=== PATIENT | male | born 1985 | race Caucasian/White ===

== ENCOUNTER 2024-08-09 07:13 | Emergency (ER) | payer OTHER, SELFPAY ==
[2024-08-09 07:34] VITALS: BP 199/133; PULSE 93; RESP 16; TEMP 36.8; O2SAT 96; BMI 33.9
--- NOTE | 2024-08-09 07:41 | ED.BACK ---
HPI - Back Pain/Injury General Time Seen by Provider: 07:41 <Phil Soares MD - Last Filed: 08/17/24 06:04> Date Seen: 08/09/24 <Phil Soares MD - Last Filed: 08/17/24 06:04> Chief Complaint: Back Injury/Pain <Phil Soares MD - Last Filed: 08/17/24 06:04> Stated Complaint: Severe low back pain <Phil Soares MD - Last Filed: 08/17/24 06:04> Time Seen by Provider: 08/09/24 07:41 <Phil Soares MD - Last Filed: 08/17/24 06:04> Source: patient, RN notes reviewed and old records reviewed <Phil Soares MD - Last Filed: 08/17/24 06:04> Mode of arrival: ambulatory <Phil Soares MD - Last Filed: 08/17/24 06:04> Limitations: no limitations <Phil Soares MD - Last Filed: 08/17/24 06:04> History of Present Illness HPI Narrative: 38-year-old male who comes today with back pain. Patient noted mild right-sided back pain started about 4 days ago, improved but then last night standing and had increased left-sided back pain. Took Tylenol with minimal improvement. No pain into the legs, no definite injury, no fever, no dysuria or hematuria. <Phil Soares MD - Last Filed: 08/17/24 06:04> Related Data Home Medications: Home Medications ?Medication ?Instructions ?Recorded ?Confirmed No Known Home Medications 08/09/24 08/09/24 Previous Rx's ?Medication ?Instructions ?Recorded cyclobenzaprine 10 mg tablet 10 mg PO TID PRN muscle spasm #15 08/09/24 tabs hydrocodone 5 mg-acetaminophen 325 1 tab PO Q6H PRN pain #4 tabs 08/09/24 mg tablet <Phil Soares MD - Last Filed: 08/17/24 06:04> Allergies/Adverse Reactions: Allergies Allergy/AdvReac Type Severity Reaction Status Date / Time amoxicillin Allergy Intermediate Verified 08/09/24 07:39 <Phil Soares MD - Last Filed: 08/17/24 06:04> PFSH PFSH Social History: Social History Smoking Status: Never smoker How often do you have a drink containing alcohol: 4 or more times a week AUDIT-C Alcohol total score: 4 Non-prescribed substance use: denies use <Phil Soares MD - Last Filed: 08/17/24 06:04> Exam Narrative: Exam Narrative: General: Well-developed and well-nourished, no acute distress Head: Atraumatic and normocephalic Eyes: Pupils are equal reactive, extraocular motions intact, conjunctiva clear ENT: External nose and ears are normal, posterior pharynx without erythema or exudate Neck: No midline cervical tenderness, full spontaneous range of motion the neck, trachea midline, no adenopathy Heart: Regular rate and rhythm no murmurs or thrills Lungs: Clear to auscultation bilaterally without wheezes or crackles Abdomen: Soft, nontender, nondistended with active bowel sounds. Mild left CVA tenderness to percussion Musculoskeletal: No tenderness, deformity, or edema Neurologic: Awake, alert, and oriented x3, no gross focal neurologic deficits, cranial nerves intact as tested Psych: Mood and affect are appropriate Skin: No rashes <Phil Soares MD - Last Filed: 08/17/24 06:04> Const: Vital Signs, click to edit/add: Vital Signs - 24 hr 08/09/24 07:34 Temperature 98.2 F Pulse Rate [Pulse Oximeter] 93 Respiratory Rate 16 Blood Pressure [Ri ght Upper Arm] 199/133 H Pulse Oximetry 96 Oxygen Delivery Me thod Room Air <Phil Soares MD - Last Filed: 08/17/24 06:04> Vital Signs, click to edit/add: Vital Signs - 24 hr 08/09/24 07:34 Temperature 98.2 F Pulse Rate [Pulse Oximeter] 93 Respiratory Rate 16 Blood Pressure [Ri ght Upper Arm] 199/133 H Pulse Oximetry 96 Oxygen Delivery Me thod Room Air <Nadya Mar MD - Last Filed: 08/09/24 08:26> Course Course ED Course: Patient seen and examined, presents today with left-sided back pain. On initial exam, hypertensive but otherwise vital is stable, appears comfortable. No specific areas of tenderness to palpation on low back exam but does have some left CVA tenderness to percussion, generally looks quite comfortable. Suspect musculoskeletal pain but given flank tenderness to percussion, urinalysis is ordered to evaluate for hematuria which would be concerning for kidney stone. If this is negative, patient can be treated symptomatically. Will be given Toradol and Flexeril in the emergency department. <Phil Soares MD - Last Filed: 08/17/24 06:04> Patient seen and examined, presents today with left-sided back pain. On initial exam, hypertensive but otherwise vital is stable, appears comfortable. No specific areas of tenderness to palpation on low back exam but does have some left CVA tenderness to percussion, generally looks quite comfortable. Suspect musculoskeletal pain but given flank tenderness to percussion, urinalysis is ordered to evaluate for hematuria which would be concerning for kidney stone. If this is negative, patient can be treated symptomatically. Will be given Toradol and Flexeril in the emergency department. Patient signed out to me by Dr. Soares to follow up on urinalysis. The urinalysis is negative. Will discharge home with treatment for musculoskeletal back pain and resumption of his lisinopril. Discharge instructions and medications per Dr. Soares. <Nadya Mar MD - Last Filed: 08/09/24 08:26> Vital Signs Vital signs: Initial Vital Signs Temperature 98.2 F 08/09/24 07:34 Temperature Source Temporal Artery Scan 08/09/24 07:34 Pulse Rate 93 08/09/24 07:34 Respiratory Rate 16 08/09/24 07:34 Blood Pressure 199/133 H 08/09/24 07:34 Blood Pressure Mean 155 H 08/09/24 07:34 Blood Pressure Position Sitting 08/09/24 07:34 Pulse Oximetry 96 08/09/24 07:34 Oxygen Delivery Method Room Air 08/09/24 07:34 Vital Signs Temperature 98.2 F 08/09/24 07:34 Pulse Rate 93 08/09/24 07:34 Respiratory Rate 16 08/09/24 07:34 Blood Pressure 199/133 H 08/09/24 07:34 Pulse Oximetry 96 08/09/24 07:34 Oxygen Delivery Method Room Air 08/09/24 07:34 Temperature 98.2 F 08/09/24 07:34 Pulse Rate 93 08/09/24 07:34 Respiratory Rate 16 08/09/24 07:34 Blood Pressure 199/133 H 08/09/24 07:34 Pulse Oximetry 96 08/09/24 07:34 Oxygen Delivery Method Room Air 08/09/24 07:34 <Phil Soares MD - Last Filed: 08/17/24 06:04> Initial Vital Signs Temperature 98.2 F 08/09/24 07:34 Temperature Source Temporal Artery Scan 08/09/24 07:34 Pulse Rate 93 08/09/24 07:34 Respiratory Rate 16 08/09/24 07:34 Blood Pressure 199/133 H 08/09/24 07:34 Blood Pressure Mean 155 H 08/09/24 07:34 Blood Pressure Position Sitting 08/09/24 07:34 Pulse Oximetry 96 08/09/24 07:34 Oxygen Delivery Method Room Air 08/09/24 07:34 Vital Signs Temperature 98.2 F 08/09/24 07:34 Pulse Rate 93 08/09/24 07:34 Respiratory Rate 16 08/09/24 07:34 Blood Pressure 199/133 H 08/09/24 07:34 Pulse Oximetry 96 08/09/24 07:34 Oxygen Delivery Method Room Air 08/09/24 07:34 Temperature 98.2 F 08/09/24 07:34 Pulse Rate 93 08/09/24 07:34 Respiratory Rate 16 08/09/24 07:34 Blood Pressure 199/133 H 08/09/24 07:34 Pulse Oximetry 96 08/09/24 07:34 Oxygen Delivery Method Room Air 08/09/24 07:34 <Nadya Mar MD - Last Filed: 08/09/24 08:26> Medications Administered Medications: Discontinued Medications Generic Name Dose Route Start Last Admin Trade Name Freq PRN Reason Stop Dose Admin Cyclobenzaprine HCl 10 mg 08/09/24 07:47 08/09/24 08:00 Cyclobenzaprine Hcl 10 Mg Tablet PO 08/09/24 07:48 10 mg ONCE ONE Administration Dexamethasone 10 mg 08/09/24 07:47 08/09/24 08:00 Dexamethasone 10 Mg/Ml Inj IM 08/09/24 07:48 10 mg ONCE ONE Administration Ketorolac Tromethamine 30 mg 08/09/24 07:47 08/09/24 08:04 Ketorolac 30 Mg/Ml Inj IM 08/09/24 07:48 30 mg ONCE ONE Administration <Phil Soares MD - Last Filed: 08/17/24 06:04> Discontinued Medications Generic Name Dose Route Start Last Admin Trade Name Wilian PRN Reason Stop Dose Admin Cyclobenzaprine HCl 10 mg 08/09/24 07:47 08/09/24 08:00 Cyclobenzaprine Hcl 10 Mg Tablet PO 08/09/24 07:48 10 mg ONCE ONE Administration Dexamethasone 10 mg 08/09/24 07:47 08/09/24 08:00 Dexamethasone 10 Mg/Ml Inj IM 08/09/24 07:48 10 mg ONCE ONE Administration Ketorolac Tromethamine 30 mg 08/09/24 07:47 08/09/24 08:04 Ketorolac 30 Mg/Ml Inj IM 08/09/24 07:48 30 mg ONCE ONE Administration <Nadya Mar MD - Last Filed: 08/09/24 08:26> MDM - Back Pain/Injury Lab Data Labs: Lab Results 08/09/24 Range/Units 07:47 Urine Color Yellow (Yellow) Urine Appearance Clear (Clear) Urine pH 7.0 (5.0-8.5) Ur Specific [place] 1.015 (1.000-1.030) Urine Protein Negative (Negative) Urine Glucose (UA) Negative (Negative) Urine Ketones Negative (Negative) Urine Blood Negative (Negative) Urine Nitrite Negative (Negative) Urine Bilirubin Negative (Negative) Urine Urobilinogen 0.2 (0.2-1.0) Ur Leukocyte Esterase Negative (Negative) Urine RBC 0-2 (0-2) Urine WBC 0-2 (0-5) Ur Squamous Epith Cells None (None-Few) Urine Bacteria None (None) <Phil Soares MD - Last Filed: 08/17/24 06:04> Lab Results 08/09/24 Range/Units 07:47 Urine Color Yellow (Yellow) Urine Appearance Clear (Clear) Urine pH 7.0 (5.0-8.5) Ur Specific [place] 1.015 (1.000-1.030) Urine Protein Negative (Negative) Urine Glucose (UA) Negative (Negative) Urine Ketones Negative (Negative) Urine Blood Negative (Negative) Urine Nitrite Negative (Negative) Urine Bilirubin Negative (Negative) Urine Urobilinogen 0.2 (0.2-1.0) Ur Leukocyte Esterase Negative (Negative) Urine RBC 0-2 (0-2) Urine WBC 0-2 (0-5) Ur Squamous Epith Cells None (None-Few) Urine Bacteria None (None) <Nadya Mar MD - Last Filed: 08/09/24 08:26> Discharge Plan Discharge Clinical Impression: Acute left-sided low back pain <Phil Soares MD - Last Filed: 08/17/24 06:04> Patient Disposition: Home, Self-Care <Phil Soares MD - Last Filed: 08/17/24 06:04> Condition: Stable <Phil Soares MD - Last Filed: 08/17/24 06:04> Instructions: Acute Low Back Pain (ED) <Phil Soares MD - Last Filed: 08/17/24 06:04> Additional Instructions: Tylenol and ibuprofen as needed for pain [place] for severe pain Flexeril for spasm Ice or heat for comfort Follow-up with primary care doctor in 5-7 days for recheck and evaluation for physical therapy <Phil Soares MD - Last Filed: 08/17/24 06:04> Activity Level: Activity as Tolerated <Phil Soares MD - Last Filed: 08/17/24 06:04> Activity as Tolerated <Nadya Mar MD - Last Filed: 08/09/24 08:26> Discharge Diet: Regular <Phil Soares MD - Last Filed: 08/17/24 06:04> Regular <Nadya Mar MD - Last Filed: 08/09/24 08:26> Prescriptions: New cyclobenzaprine 10 mg tablet 10 mg PO TID PRN (Reason: muscle spasm) Qty: 15 0RF hydrocodone-acetaminophen 5-325 mg tablet 1 tab PO Q6H PRN (Reason: pain) Qty: 4 0RF No Action No Known Home Medications <Phil Soares MD - Last Filed: 08/17/24 06:04> Follow Up/Referrals: Braxton Hunt MD [Primary Care Provider] - <Phil Soares MD - Last Filed: 08/17/24 06:04> Stand Alone Forms: MyHealth Info Instructions <Phil Soares MD - Last Filed: 08/17/24 06:04>
[2024-08-09 07:55] LABS: Appearance Urine Clear (Clear); Bilirubin Urine Negative (Negative); Blood Urine Negative (Negative); Color Urine Yellow (Yellow); Glucose Urine Negative (Negative); Ketones Urine Negative (Negative); Leukocyte Esterase Urine Negative (Negative); Nitrite Urine Negative (Negative); Protein Urine Negative (Negative); Specific Gravity Urine 1.015 (1.000-1.030); Urobilinogen Urine 0.2 (0.2-1.0)
[2024-08-09] MEDS: CYCLOBENZAPRINE HCL 10 MG TABLET PO (08:00)
[2024-08-09] MEDS: dexAMETHasone 10 MG/ML inj IM (08:00)
[2024-08-09 08:03] LABS: RBC Urine 0-2 (0-2); WBC Urine 0-2 (0-5)
[2024-08-09] MEDS: KETOROLAC 30 MG/ML inj IM (08:04)
--- OUTSIDE RECORDS SUMMARY | 2024-08-09 08:17 | XMS_ITS | Encounter Summary ---
Author Organization [facility] Address [address] [place] [address] Phone [email or web address] Care Team Providers Care Content Management Consultant Name Role Phone Unavailable Primary Care Provider Unavailabl e Encounter Details Date Type Department Care Team (Late st Contact Info) Description 06/09/2024 Claims Summary [facility] [address] [place] [address] Provider, Claims Summary External, [address] [place] [id number] Social History Tobacco Use Types Packs/Day Years Used Date Smoking Tobacco: Never Assessed Sex and Gender Information Value Date Recorded Sex Assigned at Not on file Gender Identity Not on file Sexual Orientation Not on file documented as of this encounter Plan of Treatment Not on file documented as of this encounter Visit Diagnoses Not on filedocumented in this encounter
--- OUTSIDE RECORDS SUMMARY | 2024-08-09 08:17 | XMS_ITS | Clinical Summary ---
Author Organization [facility] Address [address] [place] [address] Phone [email or web address] Care Team Providers Care Special Trackwork Blacksmith Name Role Phone Unavailable Primary Care Provider Unavailabl e Encounters Date Type Department Care Team Description 07/21/2024 Claims Summary [facility] [address] [place] [address] Provider, Claims Summary MD Basil 06/09/2024 Claims Summary [facility] [address] [place] [address] Provider, Claims Summary MD Basil from Last 3 Months Social History Tobacco Use Types Packs/Day Years Used Date Smoking Tobacco: Never Assessed Sex and Gender Information Value Date Recorded Sex Assigned at Not on file Gender Identity Not on file Sexual Orientation Not on file Plan of Treatment Not on file
--- OUTSIDE RECORDS SUMMARY | 2024-08-09 08:17 | XMS_ITS | Encounter Summary ---
Author Organization [facility] Address [address] [place] [address] Phone [email or web address] Care Team Providers Care Movie Machine Operator Name Role Phone Unavailable Primary Care Provider Unavailabl e Encounter Details Date Type Department Care Team (Late st Contact Info) Description 07/21/2024 Claims Summary [facility] [address] [place] [address] Provider, Claims Summary External, [address] [place] [id number] Social History Tobacco Use Types Packs/Day [...]
--- OUTSIDE RECORDS SUMMARY | 2024-08-09 08:17 | XMS_ITS | Clinical Summary ---
Author Organization [facility] Address [place], [place] [address] Care Team Providers Care Signal System Testing Maintainer Name Role Phone Braxton Hunt MD Primary Care Provider Allergies Active Allergy Reactions Criticality Noted Date Comments Amlodipine Edema 12/22/2023 On 10 and 5 mg dose. Cefaclor Hives 04/23/2011 Lisinopril Hyperkalemia 07/13/2021 Medications Medication Sig Dispensed Refills Start Date End Date Status chlorthalidone (HYGROTON) 25 mg tabletIndications:Ess ential hypertension Take 1 Tablet (25 mg) by mouth once daily. 90 Tablet 3 10/22/2023 Active carvediloL (COREG) 12.5 mg tabletIndications:Ess ential hypertension Take 1 Tablet (12.5 mg) by mouth two times daily with meals. 180 Tablet 3 11/27/2023 Active CPAPIndications:MARIA A (obstructive sleep apnea) Resmed CPAP machine for home use at pressure 7cmw, CPAP mask- mask of choice, fit to comfort one per 3 months 1 Each 11 02/25/2024 Active Active Problems Problem Noted Date Diagnosed Date hard to take a deep breath MDI trial 07/13/2021 07/13/2021 Celiac disease 03/31/2019 Overview (03/31/2019): EGD 03/2019 celiac disease God[place] 1, trial of gluten free diet for 3 months MARIA A (obstructive sleep apnea) 03/22/2019 Essential hypertension 03/04/2019 Inguinal hernia, right 06/28/2018 Overview (06/28/2018): Incidental finding on CT of abdomen and pelvis, April 2017 Family history of hypertrophic cardiomyopathy Overview (12/28/2017): Normal echo , guidelines recommend repeat in 5 years Hyperlipidemia Resolved Problems Problem Noted Date Diagnosed Date Resolved Date Essential hypertension 10/22/202311/27 Overview (10/22/2023): Lisinopril caused hyperkalemia. Amlodipine caused edema. Elevated BP without diagnosis of hypertension 02/08/20 17 06/25/2018 Immunizations Name Administration Dates Next Due Adenovirus Type 4 and 7 12/11/2012 Anthrax Vaccine 04/05/2020, 9,12/20/2016,02/20,10/14/2015 HepA-HepB (Twinrix) 02/03/2013,12/11/2012 Hepatitis A (Adult) 01/30/2014 Hepatitis B (Adult) 01/30/2014 Inactivated Polio Vaccine 12/11/2012 Influenza Virus, Unspecified 08/22/2019, 08/22/2018,09/27/2017,09/23,09/13/2016,10/15/2014,10/26/2013 ,12/11/2012 Influenza, IIV3 (Age >=3 years) 09/10/2018 Influenza, IIV4 12/27/2021, 9,08/10/2017,09/06 Influenza,CCIIV4 PRESERV FREE 10/19/2022 Meningococcal Vaccine (Menactra) 12/11/2012 Td (Age >=7 Years) 01/05/2007 Td, Preservative Free (age >= 7 Years) 7 Tdap 07/13/2021,01/05/2007 Tdap, Unspecified 12/11/2012 Typhoid (injectable) 09/24/2019,02/21/2016,10/15 Family History Medical History Relation Name Comments Diabetes type II Father Hypertension Father Sleep apnea Father Hypertension Maternal Grandfather Hepatitis Mother Hepatitis C Hypertrophic cardiomyopathy Mother Stroke Other P Uncle age 35 Cancer-prostate Paternal Uncle Anesthesia Problem No Family History Relation Name Status Comments Brother Alive Father Alive Half-Brother Alive Maternal Grandfather Mother Alive Other Paternal Uncle Social History Tobacco Use Types Packs/Day Years Used Date Smoking Tobacco: Never Smokeless Tobacco: Never Tobacco Cessation:Counseling Given: No Alcohol Use Standard Drinks/Week Comments Yes 2 (1 standard drink = 0.6 oz pur e alcohol) PHQ-2 Answer Date Recorded PHQ-2 TOTAL SCORE 0 11/27/2023 Social Connections Answer Date Recorded Frequency of Communication with Friends and Fami ly 0 11/27/2023 Financial Resource Strain Answer Date R ecorded Difficulty of Paying Living Expenses 3 11/27/2023 Difficulty of Paying Living Expenses Not on file 11/27/2023 Food Insecurity Answer Date Recorded Worried About Running Out of Food in the Last Ye ar 1 11/27/2023 Transportation Needs Answer Date Record ed Lack of Transportation (Medical) 1 11/27/2023 Housing Stability Answer Date Recorded Unable to Pay for Housing in the Last Year 1 11/27/2023 Sex and Gender Information Value Date Recorded Sex Assigned at Not on file Gender Identity Not on file Sexual Orientation Not on file Obstetrics History Last Filed Vital Signs Vital Sign Reading Time Taken Comments Blood Pressure 150/92 02/11/2024 3:32 PM CDT Pulse 88 02/11/2024 3:29 PM CDT Temperature 36.4 ??C (97.6 ??F) 10/22/2023 2:21 PM CS T Respiratory Rate 20 05/02/2021 9:54 AM CDT Oxygen Saturation 98% 02/11/2024 3:29 PM CDT Inhaled Oxygen Concentration - - Weight 118.9 kg (262 lb 1.6 oz) 02/11/2024 3:29 PM CDT Height 182.9 cm (6') 11/27/2023 7:41 AM SYS DIR Body Mass Index 35.55 11/27/2023 7:41 AM SYS DIR Plan of Treatment Health Maintenance Due Date Last Done Comments COVID-19 vaccine series ( season) 2024 12/27/2021, 12/06/2021 Influenza for age 9-49 07/11/2024 , 12/27/2021, 08/22/2019, Additional history exists BMI (ht and wt on same day) for age 18+ 11/27/2024 11/27/2023, 10/05/2021, 07/13/2021, Additional history exists Depression screening for age 12+ 11/27/2024 11/27/2023, 07/13/2021, 07/13/2021, Additional history exists Lipids for age 35-44 12/22/2028 12/22/2023, 07/13/2021, 02/23/2019, Additional history exists Tetanus booster 07/13/2031 07/13/2021, 11/2012, 01/05/2007, Additional history exists Tdap Completed 07/13/2021, 11/2012, 01/05/2007 HIV for age 15-65 Completed 12/22/2023 Hepatitis C screening for age 18-79 Completed 12/22/2023 Pneumococcal series for age 6-64 Aged Out No longer eligible based on patient's age to complete this topic Procedures Procedure Name Priority Date/Time Associated Diagnosis Comments ANTI HIV 1/2 Routine 12/22/2023 8:38 AM SYS DIR Screening for HIV (human immunodeficiency virus) ANTI HCV Routine 12/22/2023 8:38 AM SYS DIR Need for hepatitis C screening test LIPID PANEL W REFLEX MEASURED LDL Routine 12/22/2023 8:38 AM SYS DIR Hyperlipidemia, unspecified hyperlipidemia type from Last 3 Months or Most Recently Relevant to Health Maintenance Results * (ABNORMAL) LIPID PANEL W REFLEX MEASURED LDL (12/22/2023 8:38 AM SYS DIR) CHOLESTEROL,TOTAL 280(H) 100 - 199 mg/dL 12/22/2023 4:48 PM SYS DIR [facility] Comment: Cholesterol, Total Reference Ranges Desirable <200 mg/dL Borderline 200-239 mg/dL High >=240 mg/dL TRIGLYCERIDES 226(H) <150 mg/dL 12/22/2023 4:48 PM SYS DIR [facility] HDL CHOLESTEROL 55 >40 mg/dL 4:48 PM SYS DIR [facility] NON-HDL CHOLESTEROL 225(H) <145 mg/dl 12/22/2023 4:48 PM SYS DIR [facility] CHOL/HDL RATIO 5.09(H) <4.50 12/22/2023 4:48 PM SYS DIR [facility] LDL CHOLESTEROL 180(H) <=130 mg/dL 12/22/2023 4:48 PM SYS DIR [facility] VLDL CHOLESTEROL 45(H) <=30 mg/dL 12/22/2023 4:48 PM SYS DIR [facility] PROVIDER ORDERED STATUS RANDOM 12/22/2023 4:48 PM SYS DIR [facility] Blood BLOOD SPECIMEN / Unknown Venipuncture / Unknown 12/22/2023 8:38 AM SYS DIR 12/22/2023 8:38 AM SYS DIR Braxton Hunt MD CHEMISTRY Performing Organization Address [facility] Co de Phone Number [facility] [address] [place] [address], [place] * ANTI HCV (12/22/2023 8:38 AM SYS DIR) HEPATITIS C ANTIBODY Non-Reacti ve Non-React jaymie 12/22/2023 4:51 PM SYS DIR [facility] Comment:Please note, per www .CDC.gov: If a patient is known to be at high risk of HCV infection, or is symptomatic, and the physician's suspicion of HCV infection is high, HCV RNA testing is often employed and is of diagnostic value, even after an initial negative anti-HCV test result. Blood BLOOD SPECIMEN / Unknown Venipuncture / Unknown 12/22/2023 8:38 AM SYS DIR 12/22/2023 8:38 AM SYS DIR Braxton Hunt MD SEND OUTS Performing Organization Address City/[facility]/ZIP Co de Phone Number [facility] [address] [place] [address], [place] * ANTI HIV 1/2 (12/22/2023 8:38 AM SYS DIR) HIV-1/HIV-2 SCREEN Non-Reacti ve Non-Reacti ve 12/22/2023 4:37 PM SYS DIR [facility] Comment:HIV-1 p24 and HIV-1/ HIV-2 Ab Not Detected. Blood BLOOD SPECIMEN / Unknown Venipuncture / Unknown 12/22/2023 8:38 AM SYS DIR 12/22/2023 8:38 AM SYS DIR Braxton Hunt MD SEND OUTS [facility] [address] [place] [address], from Last 3 Months or Most Recently Relevant to Health Maintenance Care Teams Signal System Testing Maintainer Relationship Specialty Start Date End Date Braxton Hunt MD [address] [place] [address] PCP - General Family Practice 01/25/19
== END 2024-08-09 08:50 | disposition home or self-care (01) ==
PROVIDERS: Family Medicine; Emergency Provider Emergency Medicine; PCP Family Medicine
DX: M54.50 Low back pain, unspecified (principal)
CPT/HCPCS: 81001; 96372; 99284; A9270; J1100; J1885